=== PATIENT | female | born 1970 | race American Indian/Alaskan Native ===

== ENCOUNTER 2017-04-30 18:23 | Observation (INO) | payer MEDICAID ==
[2017-04-30 18:31] VITALS: BMI 20.2
[2017-04-30] MEDS ORDERED: Sodium Chloride 0.9% 1,000 ML IV STA (19:03)
[2017-04-30] MEDS ORDERED: ceFAZolin 1 gm in NS 1 GM/100 ML BAG IVPB STA (19:07)
[2017-04-30] MEDS ORDERED: Iohexol 240 (50 ml) ONE (19:10)
--- NOTE | 2017-04-30 19:21 | ED PDOC ---
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 Patient reports 2-3 episodes of vomiting daily. Patient also notes appetite changes and weight loss, about 5 pounds a week. Patient was told she was septic and prescribed antibiotics, notes she got yeast infection from medication. Patient went [place] [facility] [place] discharged home a week ago. Denies any diarrhea, vaginal bleeding, dysuria or any other complaints at this time. Reports marijuana use but denies any alcohol use. Medications: Keflex (4 times a day), Zantac, oxycodone PMD: Dr. Jacquelin Bocanegra Symptom Onset: Sudden Symptom Course: Unchanged Activities at Onset: Rest Context: Home Past Medical History - Provider Review Nursing Documentation Reviewed: Yes - Infectious Disease Hx of Infectious Diseases: None - Musculoskeletal/Rheumatological Other/Comment: Knee surgery - "pseudogout" - Genitourinary/Gynecological Other/Comment: endometriosis - Psychiatric Hx Depression: Yes Hx Substance Use: Yes - Surgical History Hx Splenectomy: Yes Other/Comment: R knee surgery - Anesthesia Hx Anesthesia: Yes Hx Anesthesia Reactions: No Hx Malignant Hyperthermia: No Family/Social History - Physician Review Nursing Documentation Reviewed: Yes Family/Social History: Other (non-contributory) Smoking Status: Never Smoked Hx Alcohol Use: No Hx Substance Use: Yes Substance used: marijuana Allergies/Home Meds Allergies/Adverse Reactions: Allergies No Known Allergies Allergy (Verified 04/30/17 22:40) Review of Systems - Physician Review All systems were reviewed & negative as marked: Yes - Review of Systems Gastrointestinal: Abdominal Pain, Vomiting, Appetite Changes. absent: Diarrhea Genitourinary Female: absent: Dysuria, Vaginal Bleeding Physical Exam Vital Signs Reviewed: Yes Vital Signs Temp Pulse Resp BP Pulse Ox 04/30/17 20:25 65 18 135/82 98 04/30/17 18:36 98.5 F 68 18 138/86 99 Appearance: Positive for: Well-Appearing, Non-Toxic, Comfortable Pain Distress: None Mental Status: Positive for: Alert and Oriented X 3 - Systems Exam Head: Present: Atraumatic, Normocephalic Pupils: Present: PERRL Extroacular Muscles: Present: EOMI Conjunctiva: Present: Normal Mouth: Present: Moist Mucous Membranes Neck: Present: Normal Range of Motion Respiratory/Chest: Present: Clear to Auscultation, Good Air Exchange. No: Respiratory Distress, Accessory Muscle Use Cardiovascular: Present: Regular Rate and Rhythm, Normal S1, S2. No: Murmurs Abdomen: Present: Tenderness (diffuse, non focal), Normal Bowel Sounds. No: Distention, Peritoneal Signs Back: Present: Normal Inspection Upper Extremity: Present: Normal Inspection. No: Cyanosis, Edema Lower Extremity: Present: Normal Inspection. No: Edema Neurological: Present: GCS=15, CN II-XII Intact, Speech Normal Skin: Present: Warm, Dry, Normal Color. No: Rashes Psychiatric: Present: Alert, Oriented x 3, Normal Insight, Normal Concentration Medical Decision Making ED Course and Treatment: 04/30/17 19:13 EKG: Ordered, reviewed, and independently interpreted the EKG. Rate : 71 BPM Rhythm : NSR Interpretation : Right bundle branch block, no STEMI - Lab Interpretations Lab Results: 04/30/17 19:15 04/30/17 19:15 Lab Results 04/30/17 19:15: Urine Opiates Screen Negative, Urine Methadone Screen Negative, Ur Barbiturates Screen Negative, Ur Phencyclidine Scrn Negative, Ur Amphetamines Screen Negative, U Benzodiazepines Scrn Negative, U Oth Cocaine Metabols Negative, U Cannabinoids Screen Positive H 04/30/17 19:15: pO2 31, VBG pH 7.30 L, VBG pCO2 62.0 H, VBG HCO3 30.5 H, VBG Total CO2 32.4 H, VBG O2 Sat (Calc) 63.9, VBG Base Excess 2.3 H, VBG Potassium 5.3 H, Sodium 141.0, Chloride 106.0, Glucose 115 H, Lactate 1.5, FiO2 21.0, Venous Blood Potassium 5.3 H 04/30/17 19:15: Urine Color Yellow, Urine Appearance Clear, Urine pH 6.0, Ur Specific [place] >= 1.030, Urine Protein 30 H, Urine Glucose (UA) Negative, Urine Ketones Negative, Urine Blood Small H, Urine Nitrate Negative, Urine Bilirubin Negative, Urine Urobilinogen 0.2, Ur Leukocyte Esterase Negative, Urine RBC 2 - 5, Urine WBC 1 - 3, Ur Epithelial Cells 10 - 12, Urine Bacteria Few 04/30/17 19:15: TSH 3rd Generation 1.54 04/30/17 19:15: Sodium 146, Chloride 106, Potassium 4.2, Carbon Dioxide 27, Anion Gap 17, BUN 14, Creatinine 0.7, Est GFR ( Amer) > 60, Est GFR (Non- Af Amer) > 60, Random Glucose 109, Calcium 9.9, Total Bilirubin 0.5, AST 35, ALT 51, Alkaline Phosphatase 68, Troponin I 0.03, Total Protein 7.8, Albumin 4.8 , Globulin 3.0, Albumin/Globulin Ratio 1.6, Lipase 88 04/30/17 19:15: WBC 12.9 H, RBC 4.06, Hgb 14.0, Hct 39.3, MCV 96.8, MCH 34.5, MCHC 35.6, RDW 15.4 H, Plt Count 370, MPV 9.9, Gran % 74.4 H, Lymph % (Auto) 17.9 L, [place] % (Auto) 7.3 H, Eos % (Auto) 0.3 L, Baso % (Auto) 0.1, Gran # 9.57 H, Lymph # 2.3, [place] # 0.9 H, Eos # 0.0, Baso # 0.01 I have reviewed the lab results: Yes - RAD Interpretation Radiology Orders: 04/30/17 19:02 CHEST PORTABLE [RAD] Stat 04/30/17 19:03 ABD PELVIS PO & IV CONTRAST [CT] Stat - EKG Interpretation Interpreted by ED Physician: Yes Type: 12 lead EKG - Medication Orders Current Medication Orders: Discontinued Medications Acetaminophen (Tylenol 325mg Tab) 650 mg PO Q6H PRN PRN Reason: Pain, moderate (4-7) Sodium Chloride (Sodium Chloride 0.9%) 1,000 mls @ 999 mls/hr IV .Q1H1M STA Stop: 04/30/17 20:03 Last Admin: 04/30/17 19:24 Dose: 999 mls/hr Cefazolin Sodium (Ancef 1gm In Ns) 1 gm in 100 mls @ 100 mls/hr IVPB STAT STA Stop: 04/30/17 20:06 Last Admin: 04/30/17 19:25 Dose: 100 mls/hr Cefazolin Sodium 500 mg/ (Sodium Chloride) 50 mls @ 100 mls/hr IVPB Q8 CAMI PRN Reason: Protocol Last Admin: 05/01/17 05:33 Dose: 100 mls/hr Sodium Chloride (Sodium Chloride 0.9%) 1,000 mls @ 100 mls/hr IV .Q10H [facility] Last Admin: 05/01/17 09:49 Dose: 100 mls/hr Iohexol (Omnipaque 240 (50 Ml)) Confirm Administered Dose 50 ml .ROUTE .STK-MED ONE Stop: 04/30/17 19:11 Last Admin: 04/30/17 19:10 Dose: 50 ml Comments: Given By aircraft avionics technician Iohexol (Omnipaque 350 100 Ml) Confirm Administered Dose 350 mg .ROUTE .STK-MED ONE Stop: 04/30/17 21:25 Ketorolac Tromethamine (Toradol) 10 mg IVP STAT STA Stop: 04/30/17 19:04 Last Admin: 04/30/17 19:25 Dose: 10 mg Re-Assess: [facility] Pain Assessment Document 04/30/17 20:25 OCS (Rec: 04/30/17 21:54 OCS [id number]) Pain Reassessment Is this a pain reassessment? Yes Sleep Is patient sleeping during reassessment? No Presence of Pain Presence of Pain No Ketorolac Tromethamine (Toradol) 15 mg IVP STAT STA Stop: 05/01/17 10:07 Last Admin: 05/01/17 10:27 Dose: 15 mg Lorazepam (Ativan) 1 mg IVP Q4H PRN; Protocol PRN Reason: Anxiety Ondansetron HCl (Zofran Inj) 4 mg IVP ONCE ONE Stop: 04/30/17 19:04 Last Admin: 04/30/17 19:25 Dose: 4 mg Ondansetron HCl (Zofran Inj) 4 mg IVP Q4H PRN PRN Reason: Nausea/Vomiting Oxycodone/Acetaminophen (Percocet 5/325 Mg Tab) 1 tab PO ONCE ONE Stop: 05/01/17 01:29 Last Admin: 05/01/17 01:44 Dose: 1 tab Re-Assess: BALJINDER Pain Assessment Document 05/01/17 02:44 SD (Rec: 05/01/17 05:33 SD [id number]) Pain Reassessment Is this a pain reassessment? Yes Sleep Is patient sleeping during reassessment? No Presence of Pain Presence of Pain No Pain Scale Used Pain Scale Used Numeric Pantoprazole Sodium (Protonix Inj) 40 mg IVP DAILY CAMI Last Admin: 05/01/17 09:49 Dose: 40 mg Pantoprazole Sodium (Protonix Ec Tab) 40 mg PO 0600 [facility]I Pneumococcal Polyvalent Vaccine (Pneumovax 23 Vaccine) 0.5 ml IM .ONCE ONE Stop: 04/30/17 23:22 Polyethylene Glycol (Miralax) 17 gm PO DAILY CAMI - Scribe Statement The provider has reviewed the documentation as recorded by the Aretha Patel Provider Scribe Attestation: All medical record entries made by the Scribe were at my direction and personally dictated by me. I have reviewed the chart and agree that the record accurately reflects my personal performance of the history, physical exam, medical decision making, and the department course for this patient. I have also personally directed, reviewed, and agree with the discharge instructions and disposition. Disposition/Present on Arrival - Present on Arrival Any Indicators Present on Arrival: No History of DVT/PE: No History of Uncontrolled Diabetes: No Urinary Catheter: No History of Decub. Ulcer: No History Surgical Site Infection Following: None - Disposition Have Diagnosis and Disposition been Completed?: Yes Diagnosis: Intractable vomiting with nausea Disposition: HOSPITALIZED Disposition Time: 21:41 Condition: STABLE
[2017-04-30 19:24] LABS: VENOUS BLOOD GAS BASE EXCESS 2.3 mmol/L (0.0-2.0)
[2017-04-30 19:30] LABS: BASO # 0.01 K/mm3 (0.0-2.0); BASO % 0.1 % (0.0-3.0); EOS % 0.3 % (1.5-5.0); GRAN # 9.57 (1.4-6.5); GRAN % 74.4 % (50.0-68.0); HEMATOCRIT 39.3 % (36.0-48.0); LYMPH # 2.3 (1.2-3.4); LYMPH % 17.9 % (22.0-35.0); MEAN CELL VOLUME 96.8 fl (80.0-105.0); MEAN CORPUSCULAR HEMOGLOBIN 34.5 pg (25.0-35.0); MEAN CORPUSCULAR HGB CONC 35.6 g/dl (31.0-37.0); MEAN PLATELET VOLUME 9.9 fl (7.0-11.0); MONO # 0.9 (0.1-0.6); MONO % 7.3 % (1.0-6.0); RED CELL DISTRIBUTION WIDTH 15.4 % (11.5-14.5); WHITE BLOOD COUNT 12.9 10^3/ul (4.5-11.0)
[2017-04-30 19:39] LABS: ALB/GLOB RATIO 1.6 (1.1-1.8); ALKALINE PHOSPHATASE 68 U/L (38-133); ALT/SGPT 51 U/L (7-56); AST/SGOT 35 U/L (15-39); BILIRUBIN,TOTAL 0.5 mg/dL (0.2-1.3); BLOOD UREA NITROGEN 14 mg/dL (7-21); CALCIUM 9.9 mg/dL (8.4-10.5); CARBON DIOXIDE 27 mmol/L (21-33); CHLORIDE 106 mmol/L (98-107); GFR AFRICAN-AMERICAN > 60; GLUCOSE,RANDOM 109 mg/dL (70-110); LIPASE 88 U/L (23-300); POTASSIUM 4.2 mmol/L (3.6-5.0); SODIUM 146 mmol/L (132-148); TOTAL PROTEIN 7.8 g/dL (5.8-8.3)
[2017-04-30 19:51] LABS: TROPONIN I 0.03 ng/mL; URINE BILIRUBIN NEGATIVE (NEGATIVE); URINE BLOOD SMALL (NEGATIVE); URINE GLUCOSE (UA) NEGATIVE (NEGATIVE); URINE KETONE NEGATIVE (NEGATIVE); URINE LEUKOCYTE ESTERASE NEGATIVE Leu/uL (NEGATIVE); URINE PROTEIN 30 mg/dL (<30 mg/dL); URINE UROBILINOGEN 0.2 E.U./dL (<1 E.U./dL)
[2017-04-30 19:57] LABS: URINE APPEARANCE CLEAR (CLEAR); URINE COLOR YELLOW (YELLOW)
[2017-04-30 20:08] LABS: URINE BACTERIA FEW (NEG)
[2017-04-30] MEDS ORDERED: Iohexol 350 MG/100 ML VIAL ONE (21:24)
--- NOTE | 2017-04-30 22:50 | CP.PCM.HP ---
<Maryanne Lay - Last Filed: 04/30/17 23:00> History of Present Illness - History of Present Illness History of Present Illness: 46 F with PMHx of endometriosis with endometrial ablation, splenectomy s/p trauma, left knee surgery s/p septic joint, depression and arthritis presented to the [facility] [place] [facility] ED with complaint sof intractable nausea and vomiting. Pt states that her symptoms are not new, however she has recently noticed herself losing weight rapidly over the past 4 weeks (15lbs). Pt states that she has been suffering from diffuse abdominal pain for years, currently rated at a 7/10. She states that she cannot eat in the morning on account of the pain and only when the pain subsides around the late afternoon is she able to tolerate a liquid diet. Pt states that she vomits almost on a daily basis, specifically 1-2 hours after eating. Pt recently had left knee surgery (04/13/2017) for a septic joint. Pt states that she was doing well in the hospital however she began to decline once she was discharged. Pt denied fever, chills, sob, chest pains, d/c, vaginal discharge, bleeding or urinary symptoms. Pt states she has regular normally formed stools daily. PMHx: As above PSHx: endometial ablation, splenectomy, left knee surgery FamHx: Noncontributory SHx: Denied tobacco/etoh, admitted to marijuana last used "couple weeks" ago Meds: Keflex (4 times a day), Zantac, oxycodone Allergies: NKDA PMD: Dr. Jacquelin Bocanegra Present on Admission - Present on Admission Any Indicators Present on Admission: No Review of Systems - Review of Systems Review of Systems: as per HPI otherwise negative Past Patient History - Infectious Disease Hx of Infectious Diseases: None - Past Social History Smoking Status: Never Smoked - MUSCULOSKELETAL/RHEUMATOLOGICAL Other/Comment: Knee surgery - "pseudogout" - GENITOURINARY/GYNECOLOGICAL Other/Comment: endometriosis - PSYCHIATRIC Hx Depression: Yes Hx Substance Use: Yes - SURGICAL HISTORY Hx Splenectomy: Yes Other/Comment: R knee surgery - ANESTHESIA Hx Anesthesia: Yes Hx Anesthesia Reactions: No Hx Malignant Hyperthermia: No Meds Home Medications: Home Medication List Medication Instructions Recorded Confirmed Type Cephalexin [Keflex] 1 cap PO QID #0 05/01/17 04/30/17 Rx Allergies/Adverse Reactions: Allergies Allergy/AdvReac Type Severity Reaction Status Date / Time No Known Allergies Allergy Verified 04/30/17 22:40 Physical Exam - Constitutional Appears: No Acute Distress - Head Exam Head Exam: ATRAUMATIC, NORMAL INSPECTION, NORMOCEPHALIC - Eye Exam Eye Exam: EOMI, Normal appearance, PERRL Pupil Exam: NORMAL ACCOMODATION, PERRL - ENT Exam ENT Exam: Mucous Membranes Dry - Neck Exam Neck exam: Positive for: Normal Inspection - Respiratory Exam Respiratory Exam: Clear to Auscultation Bilateral, NORMAL BREATHING PATTERN - Cardiovascular Exam Cardiovascular Exam: REGULAR RHYTHM, +S1, +S2 - GI/Abdominal Exam GI & Abdominal Exam: Diminished Bowel Sounds, Soft, Tenderness (diffuse). absent: Guarding - Neurological Exam Neurological exam: Alert, CN II-XII Intact, Normal Gait, Oriented x3, Reflexes Normal - Psychiatric Exam Psychiatric exam: Normal Affect, Normal Mood - Skin Skin Exam: Dry, Intact, Normal Color, Warm Results - Vital Signs Recent Vital Signs: Last Vital Signs Temp 98.5 F 04/30/17 18:36 Pulse 65 04/30/17 20:25 Resp 18 04/30/17 20:25 BP 135/82 04/30/17 20:25 Pulse Ox 98 04/30/17 20:25 - Labs Result Diagrams: 04/30/17 19:15 04/30/17 19:15 Labs: Laboratory Results - last 24 hr 04/30/17 04/30/17 04/30/17 19:15 19:15 19:15 WBC 12.9 H RBC 4.06 Hgb 14.0 Hct 39.3 MCV 96.8 MCH 34.5 MCHC 35.6 RDW 15.4 H Plt Count 370 MPV 9.9 Gran % 74.4 H Lymph % (Auto) 17.9 L [place] % (Auto) 7.3 H Eos % (Auto) 0.3 L Baso % (Auto) 0.1 Gran # 9.57 H Lymph # 2.3 [place] # 0.9 H Eos # 0.0 Baso # 0.01 pO2 VBG pH VBG pCO2 VBG HCO3 VBG Total CO2 VBG O2 Sat (Calc) VBG Base Excess VBG Potassium Sodium 146 Chloride 106 Glucose Lactate FiO2 Potassium 4.2 Carbon Dioxide 27 Anion Gap 17 BUN 14 Creatinine 0.7 Est GFR ( Amer) > 60 Est GFR (Non-Af Amer) > 60 Random Glucose 109 Calcium 9.9 Total Bilirubin 0.5 AST 35 ALT 51 Alkaline Phosphatase 68 Troponin I 0.03 Total Protein 7.8 Albumin 4.8 Globulin 3.0 Albumin/Globulin Ratio 1.6 Lipase 88 TSH 3rd Generation 1.54 Venous Blood Potassium Urine Color Urine Appearance Urine pH Ur Specific [place] Urine Protein Urine Glucose (UA) Urine Ketones Urine Blood Urine Nitrate Urine Bilirubin Urine Urobilinogen Ur Leukocyte Esterase Urine RBC Urine WBC Ur Epithelial Cells Urine Bacteria Urine Opiates Screen Urine Methadone Screen Ur Barbiturates Screen Ur Phencyclidine Scrn Ur Amphetamines Screen U Benzodiazepines Scrn U Oth Cocaine Metabols U Cannabinoids Screen 04/30/17 04/30/17 04/30/17 19:15 19:15 19:15 WBC RBC Hgb Hct MCV MCH MCHC RDW Plt Count MPV Gran % Lymph % (Auto) [place] % (Auto) Eos % (Auto) Baso % (Auto) Gran # Lymph # [place] # Eos # Baso # pO2 31 VBG pH 7.30 L VBG pCO2 62.0 H VBG HCO3 30.5 H VBG Total CO2 32.4 H VBG O2 Sat (Calc) 63.9 VBG Base Excess 2.3 H VBG Potassium 5.3 H Sodium 141.0 Chloride 106.0 Glucose 115 H Lactate 1.5 FiO2 21.0 Potassium Carbon Dioxide Anion Gap BUN Creatinine Est GFR ( Amer) Est GFR (Non-Af Amer) Random Glucose Calcium Total Bilirubin AST ALT Alkaline Phosphatase Troponin I Total Protein Albumin Globulin Albumin/Globulin Ratio Lipase TSH 3rd Generation Venous Blood Potassium 5.3 H Urine Color Yellow Urine Appearance Clear Urine pH 6.0 Ur Specific [place] >= 1.030 Urine Protein 30 H Urine Glucose (UA) Negative Urine Ketones Negative Urine Blood Small H Urine Nitrate Negative Urine Bilirubin Negative Urine Urobilinogen 0.2 Ur Leukocyte Esterase Negative Urine RBC 2 - 5 Urine WBC 1 - 3 Ur Epithelial Cells 10 - 12 Urine Bacteria Few Urine Opiates Screen Negative Urine Methadone Screen Negative Ur Barbiturates Screen Negative Ur Phencyclidine Scrn Negative Ur Amphetamines Screen Negative U Benzodiazepines Scrn Negative U Oth Cocaine Metabols Negative U Cannabinoids Screen Positive H Assessment & Plan - Assessment and Plan (Free Text) Assessment: 46 F with PMHx of endometriosis, arthritis, and depression admitted with complaints of intractable nausea & vomitting Intractable nausea and vomitting - CT Abdomen: gastric wall thickening, small bowel dilitation likely ileus - NPO - Zofran - IVF, NS @100 - Protonix - GI consulted, Dr. Ventura, appreciate recs Left Knee replacement - 04/13/17 - abx, cefazolin - continue to monitor - Ortho, ?Dr. Johnson @ [facility] [place] Marijuana abuse - Utox positive - counselled & educated patient on cessation Leukocytosis - Recent surgery for septic knee - Fu UA, Bcx, Ucx - CXR negative for any acute pathology - VSS GI DVT ppx reviewed Seen reviewed and discussed with attending Maryanne Lay, PGY2 <Marck Goel N - Last Filed: 05/02/17 03:06> Results - Vital Signs Recent Vital Signs: Last Vital Signs Temp 99.0 F 05/01/17 06:00 Pulse 64 05/01/17 06:00 Resp 20 05/01/17 06:00 BP 121/74 05/01/17 06:00 Pulse Ox 100 05/01/17 06:00 - Labs Result Diagrams: 05/01/17 06:30 05/01/17 06:30 Labs: Laboratory Results - last 24 hr 05/01/17 05/01/17 06:30 06:30 WBC 9.3 D RBC 3.39 L Hgb 11.4 L D Hct 32.9 L MCV 97.1 MCH 33.6 MCHC 34.7 RDW 15.4 H Plt Count 284 MPV 9.0 Gran % 54.9 Lymph % (Auto) 34.6 [place] % (Auto) 8.9 H Eos % (Auto) 1.4 L Baso % (Auto) 0.2 Gran # 5.12 Lymph # 3.2 [place] # 0.8 H Eos # 0.1 Baso # 0.02 Sodium 141 Potassium 3.5 L Chloride 109 H Carbon Dioxide 25 Anion Gap 11 BUN 13 Creatinine 0.7 Est GFR ( Amer) > 60 Est GFR (Non-Af Amer) > 60 Random Glucose 101 Calcium 8.6 Total Bilirubin 0.3 AST 38 ALT 50 Alkaline Phosphatase 57 Total Protein 6.2 Albumin 3.5 Globulin 2.7 Albumin/Globulin Ratio 1.3
--- NOTE | 2017-04-30 22:55 | CT ---
EXAM: CT Abdomen and Pelvis With Intravenous Contrast CLINICAL HISTORY: 46 years old, female; Pain; Abdominal pain; Generalized; Prior surgery; Surgery date: 6+ months; Surgery type: Splenectomy; Additional info: Abd pain and vomiting TECHNIQUE: Axial computed tomography images of the abdomen and pelvis with intravenous contrast. All CT scans at this facility use one or more dose reduction techniques, viz.: automated exposure control; ma/kV adjustment per patient size (including targeted exams where dose is matched to indication; i.e. head); or iterative reconstruction technique. Coronal and sagittal reformatted images were created and reviewed. CONTRAST: 100 mL of OMNIPAQUE 350 administered intravenously. COMPARISON: No relevant prior studies available. FINDINGS: Limitations: Paucity of intra-abdominal fat. Lower thorax: Mild atelectasis/scarring/fibrosis. Small pericardial effusion. ABDOMEN: Liver: Unremarkable. No mass. Gallbladder and bile ducts: No calcified stones. No ductal dilation. Pancreas: No ductal dilation. No mass. Spleen: Splenectomy. Splenic remnant or splenule. Adrenals: No mass. Kidneys and ureters: No mass. No hydronephrosis. Stomach and bowel: Contrast within small and large bowel. Focal mural thickening vs underdistention gastric antrum. Few mild to moderately dilated loops of proximal small bowel. Appendix: Normal caliber. No inflammation. PELVIS: Bladder: Unremarkable. Reproductive: Unremarkable as visualized. ABDOMEN and PELVIS: Intraperitoneal space: No significant fluid collection. No free air. Bones/joints: No acute fracture. Soft tissues: Unremarkable. Vasculature: Extensive atherosclerotic disease of aorta. Moderate atherosclerotic disease of iliac arteries. Areas of moderate to severe stenosis within aorta and RIGHT common iliac artery. No occlusion. Lymph nodes: No pathologically enlarged lymph nodes. IMPRESSION: 1. Focal gastric wall thickening vs underdistention. Clinical correlation is needed. 2. Proximal small bowel dilatation, likely ileus. Partial obstruction not entirely excluded. 3. Moderate to severe atherosclerotic disease of aorta and iliac arteries. 4. Incidental/non-acute findings are described above.
[2017-04-30] MEDS: Sodium Chloride 0.9% 1,000 ML IV SCH (23:00)
[2017-04-30] MEDS ORDERED: Pneumococcal 23-Valent Vaccine IM ONE (23:21)
[2017-05-01] MEDS ORDERED: Oxycodone/Acetaminophen 5/325 mg Tab PO ONE (01:28)
[2017-05-01 07:33] LABS: ALB/GLOB RATIO 1.3 (1.1-1.8); ALKALINE PHOSPHATASE 57 U/L (38-133); ALT/SGPT 50 U/L (7-56); AST/SGOT 38 U/L (15-39); BILIRUBIN,TOTAL 0.3 mg/dL (0.2-1.3); BLOOD UREA NITROGEN 13 mg/dL (7-21); CALCIUM 8.6 mg/dL (8.4-10.5); CARBON DIOXIDE 25 mmol/L (21-33); GFR AFRICAN-AMERICAN > 60; GLUCOSE,RANDOM 101 mg/dL (70-110); POTASSIUM 3.5 mmol/L (3.6-5.0); SODIUM 141 mmol/L (132-148); TOTAL PROTEIN 6.2 g/dL (5.8-8.3)
[2017-05-01 07:34] LABS: CHLORIDE 109 mmol/L (98-107)
[2017-05-01 07:42] LABS: BASO # 0.02 K/mm3 (0.0-2.0); BASO % 0.2 % (0.0-3.0); EOS # 0.1 (0.0-0.7); EOS % 1.4 % (1.5-5.0); GRAN # 5.12 (1.4-6.5); GRAN % 54.9 % (50.0-68.0); HEMATOCRIT 32.9 % (36.0-48.0); LYMPH # 3.2 (1.2-3.4); LYMPH % 34.6 % (22.0-35.0); MEAN CELL VOLUME 97.1 fl (80.0-105.0); MEAN CORPUSCULAR HEMOGLOBIN 33.6 pg (25.0-35.0); MEAN CORPUSCULAR HGB CONC 34.7 g/dl (31.0-37.0); MONO # 0.8 (0.1-0.6); MONO % 8.9 % (1.0-6.0); RED CELL DISTRIBUTION WIDTH 15.4 % (11.5-14.5); WHITE BLOOD COUNT 9.3 10^3/ul (4.5-11.0)
[2017-05-01] MEDS: Sodium Chloride 0.9% 1,000 ML IV SCH (09:49)
[2017-05-01 10:03] VITALS: BP 121/74; PULSE 64; RESP 20; TEMP 99; O2SAT 100
--- NOTE | 2017-05-01 10:21 | RAD ---
HISTORY: wt loss COMPARISON: No prior. FINDINGS: LUNGS: No active pulmonary disease. PLEURA: No significant pleural effusion identified, no pneumothorax apparent. CARDIOVASCULAR: Normal. OSSEOUS STRUCTURES: No significant abnormalities. VISUALIZED UPPER ABDOMEN: Normal. OTHER FINDINGS: None. IMPRESSION: No active disease.
--- NOTE | 2017-05-01 12:33 | CP.PCM.CON ---
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 Patient notes chronic cycles of daily morning intractable bilious vomiting for over twenty years. She noted a fifty percent improvement in her symptoms since having the endometrial ablation. She notes worsening in her symptoms with her menstrual cycle and after recent joint washout for left knee septic arthritis and discharge on Keflex 04/13/17. She notes multiple episodes of bilious vomiting in last two days and associated fifteen pound weight loss in the last two months. No further vomiting episodes since admission. Associated intermittent heartburn relieved by Zantac. Denies indigestion, acid reflux, abdominal pain, diarrhea, constipation, hematemesis, melena, or hematochezia. Prior EGD [id number] endorsed to be normal. No prior colonoscopy. Family- cousin- stomach cancer, sister- H pylori Gastritis; denies colon cancer Social- admits to marijuana use for fifteen years; denies tobacco or alcohol use Surgery- splenectomy, left knee washout, endometrial ablation 2014 Review of Systems - Review of Systems Review of Systems: 12-point review of systems negative except for as above Past Patient History - Infectious Disease Hx of Infectious Diseases: None - Past Social History Smoking Status: Never Smoked - CARDIAC Hx Cardiac Disorders: No - PULMONARY Hx Respiratory Disorders: Yes Other/Comment: SMOKES MARIJUANA - NEUROLOGICAL Hx Neurological Disorder: No - HEENT Hx HEENT Problems: No - RENAL Hx Chronic Kidney Disease: No - ENDOCRINE/METABOLIC Hx Endocrine Disorders: No - HEMATOLOGICAL/ONCOLOGICAL Hx Blood Disorders: No - INTEGUMENTARY Hx Dermatological Problems: Yes (TATTOOS,LEFT KNEE SCARRING FROM SX) - MUSCULOSKELETAL/RHEUMATOLOGICAL Other/Comment: Knee surgery - "pseudogout" - GASTROINTESTINAL Hx Gastrointestinal Disorders: Yes Other/Comment: 5 LB WEIGHT LOSS EVERY WEEK.N/.V ABDOMINAL PAIN X 20 YRS.IN AND OUT OF HOSPITAL.APPEITITE CHANGES. - GENITOURINARY/GYNECOLOGICAL Other/Comment: endometriosis - PSYCHIATRIC Hx Depression: Yes Hx Substance Use: Yes - SURGICAL HISTORY Hx Splenectomy: Yes Other/Comment: R knee surgery - ANESTHESIA Hx Anesthesia: Yes Hx Anesthesia Reactions: No Hx Malignant Hyperthermia: No Meds Home Medications: Home Medication List Medication Instructions Recorded Confirmed Type Cephalexin [Keflex] 1 cap PO QID #0 05/01/17 04/30/17 Rx Allergies/Adverse Reactions: Allergies Allergy/AdvReac Type Severity Reaction Status Date / Time No Known Allergies Allergy Verified 04/30/17 22:40 - Medications Medications: Current Medications Acetaminophen (Tylenol 325mg Tab) 650 mg PO Q6H PRN PRN Reason: Pain, moderate (4-7) Cefazolin Sodium 500 mg/ (Sodium Chloride) 50 mls @ 100 mls/hr IVPB Q8 CAMI PRN Reason: Protocol Last Admin: 05/01/17 05:33 Dose: 100 mls/hr Sodium Chloride (Sodium Chloride 0.9%) 1,000 mls @ 100 mls/hr IV .Q10H [facility] Last Admin: 05/01/17 09:49 Dose: 100 mls/hr Lorazepam (Ativan) 1 mg IVP Q4H PRN; Protocol PRN Reason: Anxiety Ondansetron HCl (Zofran Inj) 4 mg IVP Q4H PRN PRN Reason: Nausea/Vomiting Pantoprazole Sodium (Protonix Inj) 40 mg IVP DAILY [facility] Last Admin: 05/01/17 09:49 Dose: 40 mg Physical Exam - Constitutional Appears: Non-toxic, No Acute Distress - Head Exam Head Exam: ATRAUMATIC, NORMOCEPHALIC - Eye Exam Eye Exam: EOMI, PERRL Pupil Exam: absent: Miosis, Mydriatic, PERRL - ENT Exam ENT Exam: Mucous Membranes Moist, Normal Oropharynx - Neck Exam Neck exam: Positive for: Full Rom, Normal Inspection - Respiratory Exam Respiratory Exam: Clear to Auscultation Bilateral. absent: Rales, Rhonchi, Wheezes - Cardiovascular Exam Cardiovascular Exam: RRR, +S1, +S2. absent: Gallop, Rubs - GI/Abdominal Exam GI & Abdominal Exam: Normal Bowel Sounds, Soft. absent: Distended, Firm, Guarding, Organomegaly, Rebound, Rigid, Tenderness - Extremities Exam Extremities exam: Positive for: normal inspection. Negative for: pedal edema - Neurological Exam Neurological exam: Alert - Psychiatric Exam Psychiatric exam: Normal Affect, Normal Mood - Skin Skin Exam: Dry, Intact, Normal Color, Warm Results - Vital Signs Recent Vital Signs: Last Vital Signs Temp 99.0 F 05/01/17 06:00 Pulse 64 05/01/17 06:00 Resp 20 05/01/17 06:00 BP 121/74 05/01/17 06:00 Pulse Ox 100 05/01/17 06:00 - Labs Result Diagrams: 05/01/17 06:30 05/01/17 06:30 Labs: Laboratory Results - last 24 hr 05/01/17 05/01/17 06:30 06:30 WBC 9.3 D RBC 3.39 L Hgb 11.4 L D Hct 32.9 L MCV 97.1 MCH 33.6 MCHC 34.7 RDW 15.4 H Plt Count 284 MPV 9.0 Gran % 54.9 Lymph % (Auto) 34.6 Carroll % (Auto) 8.9 H Eos % (Auto) 1.4 L Baso % (Auto) 0.2 Gran # 5.12 Lymph # 3.2 Carroll # 0.8 H Eos # 0.1 Baso # 0.02 Sodium 141 Potassium 3.5 L Chloride 109 H Carbon Dioxide 25 Anion Gap 11 BUN 13 Creatinine 0.7 Est GFR ( Amer) > 60 Est GFR (Non-Af Amer) > 60 Random Glucose 101 Calcium 8.6 Total Bilirubin 0.3 AST 38 ALT 50 Alkaline Phosphatase 57 Total Protein 6.2 Albumin 3.5 Globulin 2.7 Albumin/Globulin Ratio 1.3 Assessment & Plan - Assessment and Plan (Free Text) Assessment: 46 year old female with history Depression, endometriosis s/p ablation, 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 Active treatment of intractable vomiting. Prior EGD [id number] endorsed to be normal. No prior colonoscopy. Plan: >resolved vomiting >counselled on marijuana cessation as component of cyclic vomiting >advance to regular diet as tolerated >continue PPI ACB >Miralax daily >counselled on outpatient EGD to evaluate for PUD/H pylori >counselled on outpatient colonoscopy to evaluate for endometrial colonic implants and CRC screening starting at 45 years of age >follow up with Dr Diaz in 2 weeks <Shawn Diaz MD - Last Filed: 05/01/17 18:35> Results - Vital Signs Recent Vital Signs: Last Vital Signs Temp 99.0 F 05/01/17 06:00 Pulse 64 05/01/17 06:00 Resp 20 05/01/17 06:00 BP 121/74 05/01/17 06:00 Pulse Ox 100 05/01/17 06:00 - Labs Result Diagrams: 05/01/17 06:30 05/01/17 06:30 Labs: Laboratory Results - last 24 hr 05/01/17 05/01/17 06:30 06:30 WBC 9.3 D RBC 3.39 L Hgb 11.4 L D Hct 32.9 L MCV 97.1 MCH 33.6 MCHC 34.7 RDW 15.4 H Plt Count 284 MPV 9.0 Gran % 54.9 Lymph % (Auto) 34.6 Carroll % (Auto) 8.9 H Eos % (Auto) 1.4 L Baso % (Auto) 0.2 Gran # 5.12 Lymph # 3.2 Carroll # 0.8 H Eos # 0.1 Baso # 0.02 Sodium 141 Potassium 3.5 L Chloride 109 H Carbon Dioxide 25 Anion Gap 11 BUN 13 Creatinine 0.7 Est GFR ( Amer) > 60 Est GFR (Non-Af Amer) > 60 Random Glucose 101 Calcium 8.6 Total Bilirubin 0.3 AST 38 ALT 50 Alkaline Phosphatase 57 Total Protein 6.2 Albumin 3.5 Globulin 2.7 Albumin/Globulin Ratio 1.3 Attending/Attestation - Attestation I have personally seen and examined this patient.: Yes I have fully participated in the care of the patient.: Yes I have reviewed all pertinent clinical information: Yes Notes (Text): 05/01/17 18:34 Patient seen with GI fellow on rounds. 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 Now resolved. Marijuana cessation councelling done. Needs outpatient EGD for vomiting and epigatsric pain and colonoscopy for endometrial implants in colon
[2017-05-01] MEDS ORDERED: POLYETHYLENE GLYCOL 3350 17 GM/Dose PACKET PO SCH (12:45)
--- NOTE | 2017-05-01 13:27 | CARD ---
APPROVED REPORT EKG Measurement Heart [id number] 140P79 [id number] <Conclusion> Normal sinus rhythm with sinus arrhythmia Possible Left atrial enlargement Right bundle branch block Abnormal ECG
--- NOTE | 2017-05-01 22:08 | CP.PCM.DIS ---
<PHILIP SURESH - Last Filed: 05/01/17 22:04> Provider - Provider Date of Admission: 04/30/17 21:39 Attending physician: Deon Goel MD Primary care physician: Jacquelin Bocanegra MD Consults: GI-Lorenzo Time Spent in preparation of Discharge (in minutes): 41 Hospital Course - Lab Results Lab Results: Most Recent Lab Values WBC 9.3 10^3/ul (4.5-11.0) D 05/01/17 06:30 RBC 3.39 10^6/uL (3.5-6.1) L 05/01/17 06:30 Hgb 11.4 g/dL (12.0-16.0) L D 05/01/17 06:30 Hct 32.9 % (36.0-48.0) L 05/01/17 06:30 MCV 97.1 fl (80.0-105.0) 05/01/17 06:30 MCH 33.6 pg (25.0-35.0) 05/01/17 06:30 MCHC 34.7 g/dl (31.0-37.0) 05/01/17 06:30 RDW 15.4 % (11.5-14.5) H 05/01/17 06:30 Plt Count 284 10^3/uL (120.0-450.0) 05/01/17 06:30 MPV 9.0 fl (7.0-11.0) 05/01/17 06:30 Gran % 54.9 % (50.0-68.0) 05/01/17 06:30 Lymph % (Auto) 34.6 % (22.0-35.0) 05/01/17 06:30 Menard % (Auto) 8.9 % (1.0-6.0) H 05/01/17 06:30 Eos % (Auto) 1.4 % (1.5-5.0) L 05/01/17 06:30 Baso % (Auto) 0.2 % (0.0-3.0) 05/01/17 06:30 Gran # 5.12 (1.4-6.5) 05/01/17 06:30 Lymph # 3.2 (1.2-3.4) 05/01/17 06:30 Menard # 0.8 (0.1-0.6) H 05/01/17 06:30 Eos # 0.1 (0.0-0.7) 05/01/17 06:30 Baso # 0.02 K/mm3 (0.0-2.0) 05/01/17 06:30 pO2 31 mm/Hg (30-55) 04/30/17 19:15 VBG pH 7.30 (7.32-7.43) L 04/30/17 19:15 VBG pCO2 62.0 (40-60) H 04/30/17 19:15 VBG HCO3 30.5 mmol/l (21-28) H 04/30/17 19:15 VBG Total CO2 32.4 mmol.L (22-28) H 04/30/17 19:15 VBG O2 Sat (Calc) 63.9 % (40-65) 04/30/17 19:15 VBG Base Excess 2.3 mmol/L (0.0-2.0) H 04/30/17 19:15 VBG Potassium 5.3 mmol/L (3.6-5.2) H 04/30/17 19:15 Sodium 141.0 mmol/L (132-148) 04/30/17 19:15 Chloride 106.0 mmol/L (98-107) 04/30/17 19:15 Glucose 115 mg/dl (65-105) H 04/30/17 19:15 Lactate 1.5 mmol/L (0.7-2.1) 04/30/17 19:15 FiO2 21.0 % 04/30/17 19:15 Sodium 141 mmol/L (132-148) 05/01/17 06:30 Potassium 3.5 mmol/L (3.6-5.0) L 05/01/17 06:30 Chloride 109 mmol/L (98-107) H 05/01/17 06:30 Carbon Dioxide 25 mmol/L (21-33) 05/01/17 06:30 Anion Gap 11 (10-20) 05/01/17 06:30 BUN 13 mg/dL (7-21) 05/01/17 06:30 Creatinine 0.7 mg/dL (0.5-1.4) 05/01/17 06:30 Est GFR ( Amer) > 60 05/01/17 06:30 Est GFR (Non-Af Amer) > 60 05/01/17 06:30 Random Glucose 101 mg/dL (70-110) 05/01/17 06:30 Calcium 8.6 mg/dL (8.4-10.5) 05/01/17 06:30 Total Bilirubin 0.3 mg/dL (0.2-1.3) 05/01/17 06:30 AST 38 U/L (15-39) 05/01/17 06:30 ALT 50 U/L (7-56) 05/01/17 06:30 Alkaline Phosphatase 57 U/L (38-133) 05/01/17 06:30 Troponin I 0.03 ng/mL 04/30/17 19:15 Total Protein 6.2 g/dL (5.8-8.3) 05/01/17 06:30 Albumin 3.5 g/dL (3.0-4.8) 05/01/17 06:30 Globulin 2.7 gm/dL 05/01/17 06:30 Albumin/Globulin Ratio 1.3 (1.1-1.8) 05/01/17 06:30 Lipase 88 U/L (23-300) 04/30/17 19:15 TSH 3rd Generation 1.54 mIU/mL (0.46-4.68) 04/30/17 19:15 Venous Blood Potassium 5.3 mmol/L (3.6-5.2) H 04/30/17 19:15 Urine Color Yellow (YELLOW) 04/30/17 19:15 Urine Appearance Clear (CLEAR) 04/30/17 19:15 Urine pH 6.0 (4.7-8.0) 04/30/17 19:15 Ur Specific [place] >= 1.030 (1.005-1.035) 04/30/17 19:15 Urine Protein 30 mg/dL (<30 mg/dL) H 04/30/17 19:15 Urine Glucose (UA) Negative mg/dL (NEGATIVE) 04/30/17 19:15 Urine Ketones Negative mg/dL (NEGATIVE) 04/30/17 19:15 Urine Blood Small (NEGATIVE) H 04/30/17 19:15 Urine Nitrate Negative (NEGATIVE) 04/30/17 19:15 Urine Bilirubin Negative (NEGATIVE) 04/30/17 19:15 Urine Urobilinogen 0.2 E.U./dL (<1 E.U./dL) 04/30/17 19:15 Ur Leukocyte Esterase Negative Renetta/uL (NEGATIVE) 04/30/17 19:15 Urine RBC 2 - 5 /hpf (0-2) 04/30/17 19:15 Urine WBC 1 - 3 /hpf (0-6) 04/30/17 19:15 Ur Epithelial Cells 10 - 12 /hpf (0-5) 04/30/17 19:15 Urine Bacteria Few (NEG) 04/30/17 19:15 Urine Opiates Screen Negative (NEGATIVE) 04/30/17 19:15 Urine Methadone Screen Negative (NEGATIVE) 04/30/17 19:15 Ur Barbiturates Screen Negative (NEGATIVE) 04/30/17 19:15 Ur Phencyclidine Scrn Negative (NEGATIVE) 04/30/17 19:15 Ur Amphetamines Screen Negative (NEGATIVE) 04/30/17 19:15 U Benzodiazepines Scrn Negative (NEGATIVE) 04/30/17 19:15 U Oth Cocaine Metabols Negative (NEGATIVE) 04/30/17 19:15 U Cannabinoids Screen Positive (NEGATIVE) H 04/30/17 19:15 - Hospital Course Hospital Course: 46 year old female with a past medical history of endometriosis with endometrial ablation, splenectomy s/p trauma, left knee surgery s/p septic joint at [facility] on 04/13, depression and arthritis presented to the [facility] ED with complaints of intractable nausea and vomiting. A CT Abdomen/Pelvis showed gastric wall thickening and small bowel dilitation likely ileus. IV cefazolin was started and GI was consulted. GI was consulted and recommended continuing PPI, Miralax daily, an outpatient EGD to evaluate for PUD/H pylori, an outpatient colonoscopy to evaluate for endometrial colonic implants and CRC screening starting at 45 years of age. Patient was then discharged on 05/01 with strict instructions to follow up with Dr Diaz in 2 weeks. - Date & Time of H&P Date of H&P: 04/30/17 Time of H&P: 22:39 Discharge Exam - Head Exam Head Exam: ATRAUMATIC, NORMOCEPHALIC - Eye Exam Eye Exam: EOMI, Normal appearance, PERRL - ENT Exam ENT Exam: Mucous Membranes Moist, Normal Exam - Neck Exam Neck exam: Full Rom - Respiratory Exam Respiratory Exam: NORMAL BREATHING PATTERN, UNREMARKABLE. absent: Rales, Rhonchi, Wheezes, Respiratory Distress - Cardiovascular Exam Cardiovascular Exam: REGULAR RHYTHM, RRR, +S1, +S2 - GI/Abdominal Exam GI & Abdominal Exam: Normal Bowel Sounds, Unremarkable. absent: Distended, Firm , Guarding, Tenderness - Exam Exam: absent: Bladder Distension - Extremities Exam Extremities exam: normal capillary refill, pedal pulses present - Back Exam Back exam: absent: CVA tenderness (L), CVA tenderness (R) - Neurological Exam Neurological exam: Alert, Normal Gait, Oriented x3 - Psychiatric Exam Psychiatric exam: Normal Affect, Normal Mood - Skin Skin Exam: Dry, Intact, Normal Color, Warm Discharge Plan - Follow Up Plan Condition: STABLE Disposition: HOME/ ROUTINE Instructions: Acute Nausea and Vomiting (DC) Additional Instructions: 1. Please follow up with Dr. Ventura/Dr. Diaz, Gastroenterology, within one week to establish care and to discuss scheduling an outpatient endoscopy and colonoscopy. 2. Please follow up with your primary care doctor, Dr. Bocanegra, within one week to discuss the medical conditions addressed on your admission to [facility]. 3. Please take all medications prescribed for their entire course. 4. If your symptoms should worsen or persist, please seek emergency medical attention. Referrals: Joe SUMMERS,MD Shawn [Medical Doctor] - 2 Week Jacquelin Bocanegra MD [Primary Care Provider] - <Deon Goel - Last Filed: 05/02/17 12:54> Provider - Provider Date of Admission: 04/30/17 21:39 Attending physician: Deon Goel MD Primary care physician: Jacquelin Bocanegra MD Hospital Course - Lab Results Lab Results: Most Recent Lab Values WBC 9.3 10^3/ul (4.5-11.0) D 05/01/17 06:30 RBC 3.39 10^6/uL (3.5-6.1) L 05/01/17 06:30 Hgb 11.4 g/dL (12.0-16.0) L D 05/01/17 06:30 Hct 32.9 % (36.0-48.0) L 05/01/17 06:30 MCV 97.1 fl (80.0-105.0) 05/01/17 06:30 MCH 33.6 pg (25.0-35.0) 05/01/17 06:30 MCHC 34.7 g/dl (31.0-37.0) 05/01/17 06:30 RDW 15.4 % (11.5-14.5) H 05/01/17 06:30 Plt Count 284 10^3/uL (120.0-450.0) 05/01/17 06:30 MPV 9.0 fl (7.0-11.0) 05/01/17 06:30 Gran % 54.9 % (50.0-68.0) 05/01/17 06:30 Lymph % (Auto) 34.6 % (22.0-35.0) 05/01/17 06:30 Menard % (Auto) 8.9 % (1.0-6.0) H 05/01/17 06:30 Eos % (Auto) 1.4 % (1.5-5.0) L 05/01/17 06:30 Baso % (Auto) 0.2 % (0.0-3.0) 05/01/17 06:30 Gran # 5.12 (1.4-6.5) 05/01/17 06:30 Lymph # 3.2 (1.2-3.4) 05/01/17 06:30 Menard # 0.8 (0.1-0.6) H 05/01/17 06:30 Eos # 0.1 (0.0-0.7) 05/01/17 06:30 Baso # 0.02 K/mm3 (0.0-2.0) 05/01/17 06:30 pO2 31 mm/Hg (30-55) 04/30/17 19:15 VBG pH 7.30 (7.32-7.43) L 04/30/17 19:15 VBG pCO2 62.0 (40-60) H 04/30/17 19:15 VBG HCO3 30.5 mmol/l (21-28) H 04/30/17 19:15 VBG Total CO2 32.4 mmol.L (22-28) H 04/30/17 19:15 VBG O2 Sat (Calc) 63.9 % (40-65) 04/30/17 19:15 VBG Base Excess 2.3 mmol/L (0.0-2.0) H 04/30/17 19:15 VBG Potassium 5.3 mmol/L (3.6-5.2) H 04/30/17 19:15 Sodium 141.0 mmol/L (132-148) 04/30/17 19:15 Chloride 106.0 mmol/L (98-107) 04/30/17 19:15 Glucose 115 mg/dl (65-105) H 04/30/17 19:15 Lactate 1.5 mmol/L (0.7-2.1) 04/30/17 19:15 FiO2 21.0 % 04/30/17 19:15 Sodium 141 mmol/L (132-148) 05/01/17 06:30 Potassium 3.5 mmol/L (3.6-5.0) L 05/01/17 06:30 Chloride 109 mmol/L (98-107) H 05/01/17 06:30 Carbon Dioxide 25 mmol/L (21-33) 05/01/17 06:30 Anion Gap 11 (10-20) 05/01/17 06:30 BUN 13 mg/dL (7-21) 05/01/17 06:30 Creatinine 0.7 mg/dL (0.5-1.4) 05/01/17 06:30 Est GFR ( Amer) > 60 05/01/17 06:30 Est GFR (Non-Af Amer) > 60 05/01/17 06:30 Random Glucose 101 mg/dL (70-110) 05/01/17 06:30 Calcium 8.6 mg/dL (8.4-10.5) 05/01/17 06:30 Total Bilirubin 0.3 mg/dL (0.2-1.3) 05/01/17 06:30 AST 38 U/L (15-39) 05/01/17 06:30 ALT 50 U/L (7-56) 05/01/17 06:30 Alkaline Phosphatase 57 U/L (38-133) 05/01/17 06:30 Troponin I 0.03 ng/mL 04/30/17 19:15 Total Protein 6.2 g/dL (5.8-8.3) 05/01/17 06:30 Albumin 3.5 g/dL (3.0-4.8) 05/01/17 06:30 Globulin 2.7 gm/dL 05/01/17 06:30 Albumin/Globulin Ratio 1.3 (1.1-1.8) 05/01/17 06:30 Lipase 88 U/L (23-300) 04/30/17 19:15 TSH 3rd Generation 1.54 mIU/mL (0.46-4.68) 04/30/17 19:15 Venous Blood Potassium 5.3 mmol/L (3.6-5.2) H 04/30/17 19:15 Urine Color Yellow (YELLOW) 04/30/17 19:15 Urine Appearance Clear (CLEAR) 04/30/17 19:15 Urine pH 6.0 (4.7-8.0) 04/30/17 19:15 Ur Specific [place] >= 1.030 (1.005-1.035) 04/30/17 19:15 Urine Protein 30 mg/dL (<30 mg/dL) H 04/30/17 19:15 Urine Glucose (UA) Negative mg/dL (NEGATIVE) 04/30/17 19:15 Urine Ketones Negative mg/dL (NEGATIVE) 04/30/17 19:15 Urine Blood Small (NEGATIVE) H 04/30/17 19:15 Urine Nitrate Negative (NEGATIVE) 04/30/17 19:15 Urine Bilirubin Negative (NEGATIVE) 04/30/17 19:15 Urine Urobilinogen 0.2 E.U./dL (<1 E.U./dL) 04/30/17 19:15 Ur Leukocyte Esterase Negative Renetta/uL (NEGATIVE) 04/30/17 19:15 Urine RBC 2 - 5 /hpf (0-2) 04/30/17 19:15 Urine WBC 1 - 3 /hpf (0-6) 04/30/17 19:15 Ur Epithelial Cells 10 - 12 /hpf (0-5) 04/30/17 19:15 Urine Bacteria Few (NEG) 04/30/17 19:15 Urine Opiates Screen Negative (NEGATIVE) 04/30/17 19:15 Urine Methadone Screen Negative (NEGATIVE) 04/30/17 19:15 Ur Barbiturates Screen Negative (NEGATIVE) 04/30/17 19:15 Ur Phencyclidine Scrn Negative (NEGATIVE) 04/30/17 19:15 Ur Amphetamines Screen Negative (NEGATIVE) 04/30/17 19:15 U Benzodiazepines Scrn Negative (NEGATIVE) 04/30/17 19:15 U Oth Cocaine Metabols Negative (NEGATIVE) 04/30/17 19:15 U Cannabinoids Screen Positive (NEGATIVE) H 04/30/17 19:15 Attending/Attestation - Attestation I have personally seen and examined this patient.: Yes I have fully participated in the care of the patient.: Yes I have reviewed all pertinent clinical information, including history, physical exam and plan: Yes Notes (Text): I have seen and examined patient at bedside. Agree with the above note: Briefly this is 46 year old female with history of endometriosis s/p ablation, recent left knee replacement due to septic joint, depression, marijuana use who was admitted with persistent chronic nausea, vomiting and questionable weight loss with normal BM. CT showed gastric wall thickeing and smal bowel dilatation. GI recommended the patient to follow up with Dr Diaz in 2 weeks and is scheduled for outpatient EGD and colonoscopy. Dr Deon Goel
[2017-05-02] MEDS ORDERED: Pantoprazole 40 mg EC Tab PO SCH (06:00)
== END 2017-05-01 14:27 | disposition home or self-care (01) ==
LOC: ED 18:23 → ERH 21:39 → MERGE 21:39 → ERH 22:09 → 3RSO 22:20
PROVIDERS: ADMIT Hospitalist; ATTEND Hospitalist
DX: R11.2 Nausea with vomiting, unspecified (principal); K56.7 Ileus, unspecified; F32.9 Major depressive disorder, single episode, unspecified; F12.10 Cannabis abuse, uncomplicated; M19.90 Unspecified osteoarthritis, unspecified site; D72.829 Elevated white blood cell count, unspecified; Z96.652 Presence of left artificial knee joint
CPT/HCPCS: 36415; 71010; 74177; 80053; 80324; 80345; 80346; 80349; 80353; 80358; 80361; 81001; 82803; 83690; 83992; 84443; 84484; 85025; 87040; 93005; 96361; 96365; 96375; 96376; 99285; C9113; G0378; J0690; J1885; J2405; J7040; Q9966; Q9967

== ENCOUNTER 2019-01-05 21:37 | Observation (INO) | payer MEDICAID ==
[2019-01-05 21:45] VITALS: BMI 23.9
[2019-01-05] MEDS ORDERED: Sodium Chloride 0.9% 1,000 ML IV STA (21:53)
[2019-01-05 22:17] LABS: HEMOGLOBIN 15.4 g/dL (12.0-16.0); MEAN CELL VOLUME 94.9 fl (80.0-105.0); MEAN CORPUSCULAR HEMOGLOBIN 33.8 pg (25.0-35.0); MEAN CORPUSCULAR HGB CONC 35.6 g/dl (31.0-37.0); MEAN PLATELET VOLUME 9.1 fl (7.0-11.0); RBC 4.55 10^6/uL (3.5-6.1); RED CELL DISTRIBUTION WIDTH 13.5 % (11.5-14.5); WHITE BLOOD COUNT 20.4 10^3/uL (4.5-11.0)
[2019-01-05 22:22] LABS: ALB/GLOB RATIO 1.2 (1.1-1.8); ALBUMIN 5.1 g/dL (3.0-4.8); ALT/SGPT 55 U/L (7-56); AST/SGOT 53 U/L (14-36); BLOOD UREA NITROGEN 15 mg/dL (7-21); CALCIUM 10.6 mg/dL (8.4-10.5); GFR NON-AFRICAN AMERICAN > 60; LIPASE 174 U/L (23-300)
[2019-01-05] MEDS ORDERED: Morphine 4 mg/ml ISec IVP STA (22:22)
[2019-01-05] MEDS ORDERED: Morphine 2 mg/ml ISec IVP STA (22:27)
--- NOTE | 2019-01-05 22:28 | ED PDOC ---
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 Patient reports symptom onset of 1 day. Patient informs of diffuse abdominal discomfort as well. Patient states she believes her symptoms are due to her endometriosis. Patient denies any fever, chills, chest pain, vaginal discharge, urinary symptoms, or any other complaint. PMD: Dr. Jacquelin Bocanegra Time/Duration: 24 hours Symptom Onset: Gradual Symptom Course: Unchanged Quality: Cramping Activities at Onset: Light Context: Home Past Medical History - Provider Review Nursing Documentation Reviewed: Yes - Infectious Disease Hx of Infectious Diseases: None - Reproductive Menopause: Yes - Cardiac Hx Cardiac Disorders: No - Pulmonary Hx Respiratory Disorders: Yes Other/Comment: SMOKES MARIJUANA - Neurological Hx Neurological Disorder: No - HEENT Hx HEENT Disorder: No - Renal Hx Renal Disorder: No - Endocrine/Metabolic Hx Endocrine Disorders: No - Hematological/Oncological Hx Blood Disorders: No - Integumentary Hx Dermatological Disorder: Yes (TATTOOS,LEFT KNEE SCARRING FROM SX) - Musculoskeletal/Rheumatological Hx Musculoskeletal Disorders: Yes Hx Arthritis: Yes Other/Comment: Knee surgery - "pseudogout" - Gastrointestinal Hx Gastrointestinal Disorders: Yes Other/Comment: 5 LB WEIGHT LOSS EVERY WEEK.N/.V ABDOMINAL PAIN X 20 YRS.IN AND OUT OF HOSPITAL.APPEITITE CHANGES. - Genitourinary/Gynecological Other/Comment: endometriosis - Psychiatric Hx Psychophysiologic Disorder: Yes Hx Schizophrenia: Yes Hx Substance Use: Yes - Surgical History Hx Arthroscopy: Yes (LEFT) Other/Comment: MYOMECTOMY, SPLEENECTOMY - Anesthesia Hx Anesthesia: Yes Hx Anesthesia Reactions: No Hx Malignant Hyperthermia: No Family/Social History - Physician Review Nursing Documentation Reviewed: Yes Family/Social History: No Known Family HX Smoking Status: Never Smoked Hx Alcohol Use: No Hx Substance Use: Yes Substance used: marijuana Allergies/Home Meds Allergies/Adverse Reactions: Allergies No Known Allergies Allergy (Unverified 01/05/19 21:45) Home Medications: Home Meds Medication Instructions Recorded Confirmed No Known Home Med 09/21/17 09/21/17 Review of Systems - Physician Review All systems were reviewed & negative as marked: Yes - Review of Systems Constitutional: absent: Fevers, Night Sweats Cardiovascular: absent: Chest Pain Gastrointestinal: Abdominal Pain, Nausea, Vomiting Genitourinary Female: Normal. absent: Dysuria, Urine Output Changes, Vaginal Discharge Physical Exam Vital Signs Reviewed: Yes Vital Signs Temp Pulse Resp BP Pulse Ox 01/05/19 21:45 97.6 F 95 H 20 141/86 100 Temperature: Afebrile Blood Pressure: Normal Pulse: Tachycardic Respiratory Rate: Normal Appearance: Positive for: Well-Appearing, Non-Toxic, Comfortable Pain Distress: Mild Mental Status: Positive for: Alert and Oriented X 3 - Systems Exam Head: Present: Atraumatic, Normocephalic Pupils: Present: PERRL Extroacular Muscles: Present: EOMI Conjunctiva: Present: Normal Mouth: Present: Moist Mucous Membranes Neck: Present: Normal Range of Motion Respiratory/Chest: Present: Clear to Auscultation, Good Air Exchange. No: Respiratory Distress, Accessory Muscle Use Cardiovascular: Present: Regular Rate and Rhythm, Normal S1, S2. No: Murmurs Abdomen: Present: Tenderness (Mild diffuse tenderness). No: Distention, Peritoneal Signs, Rebound, Guarding Back: Present: Normal Inspection Upper Extremity: Present: Normal Inspection. No: Cyanosis, Edema Lower Extremity: Present: Normal Inspection. No: Edema Neurological: Present: GCS=15, CN II-XII Intact, Speech Normal Skin: Present: Warm, Dry, Normal Color. No: Rashes Psychiatric: Present: Alert, Oriented x 3, Normal Insight, Normal Concentration Medical Decision Making ED Course and Treatment: 01/05/19 22:31 Impression: 48 year old female presents with intractable nausea, vomiting, abdominal pain. Plan: -- CT ABD & Pelvis -- Moprhine -- Pepcid -- Toradol -- Zofran -- Urinalysis -- Reassess and disposition Prior Visits: Notes and results from previous visits were reviewed. Progress Notes: 01/06/19 02:29 CT SCAN OF THE ABDOMEN AND PELVIS WITH CONTRAST. CLINICAL HISTORY: Abdominal pain. TECHNIQUE: Multiple axial and coronal CT images were obtained through the abdomen and pelvis after administration of intravenous contrast material. COMMENTS: Bilateral basilar subsegmental atelectatic airspace disease of the lung bases. Mild pericardial effusion. Heavily calcified atheromatous plaques of the abdominal aorta with multifocal high grade chronic stenosis. Diffuse thickening of the proximal small bowels. Mild diffuse thickening of the fluid-filled stomach. The liver is of uniform attenuation without mass or defect. There is no intra or extrahepatic biliary ductal dilatation. The spleen is normal. The gallbladder is within normal limits. The pancreas is of normal contour and attenuation characteristics. There is no evidence of adrenal mass. Both kidneys demonstrate prompt and equal nephrograms. The kidneys are normal in size, shape and configuration. There is no evidence of renal or ureteral mass. No renal or ureteral calculi are identified. There is no hydroureter or hy dronephrosis. No evidence for appendicitis. No evidence for small or large bowel obstruction. There is no evidence of abdominal ascites or lymphadenopathy. There is no evidence of intrinsic or extrinsic bladder mass. There is no pelvic ascites or lymphadenopathy. Images of the lung bases show no evidence of pleural or parenchymal mass. There are no pleural effusions. The bony structures are free of lytic or blastic lesions. IMPRESSION: Uncomplicated enteritis. Uncomplicated gastritis. 01/06/19 04:00 Case discussed with medical editor and house physician. Patient will be admitted to [facility] for abdominal pain, leukocytosis, and intractable vomiting. - Lab Interpretations Lab Results: Total Bilirubin 0.5 mg/dL (0.2-1.3) 01/05/19 22:05 AST 53 U/L (14-36) H 01/05/19 22:05 ALT 55 U/L (7-56) 01/05/19 22:05 Alkaline Phosphatase 120 U/L (38-126) 01/05/19 22:05 Total Protein 9.2 g/dL (5.8-8.3) H 01/05/19 22:05 Albumin 5.1 g/dL (3.0-4.8) H 01/05/19 22:05 Globulin 4.1 gm/dL 01/05/19 22:05 Albumin/Globulin Ratio 1.2 (1.1-1.8) 01/05/19 22:05 Lipase 174 U/L (23-300) 01/05/19 22:05 - RAD Interpretation Radiology Orders: 01/05/19 22:23 ABD & PELVIS IV CONTRAST ONLY [CT] Stat - Medication Orders Current Medication Orders: Sodium Chloride (Sodium Chloride 0.9%) 1,000 mls @ 999 mls/hr IV .Q1H1M STA Stop: 01/05/19 22:53 Last Admin: 01/05/19 22:09 Dose: 999 mls/hr eMAR Start Stop Document 01/05/19 22:09 IT (Rec: 01/05/19 22:09 IT [id number]) Intravenous Solution Start Date 01/05/19 Start Time 22:09 Discontinued Medications Famotidine (Pepcid) 20 mg IVP STAT STA Stop: 01/05/19 21:57 Last Admin: 01/05/19 22:09 Dose: 20 mg IVP Administration Document 01/05/19 22:09 IT (Rec: 01/05/19 22:09 IT [id number]) Charges for Administration # of IVP Administrations 1 Ketorolac Tromethamine (Toradol) 30 mg IVP ONCE ONE Stop: 01/05/19 21:54 Last Admin: 01/05/19 22:09 Dose: 30 mg MAR Pain Assessment Document 01/05/19 22:09 IT (Rec: 01/05/19 22:09 IT [id number]) Pain Reassessment Is this a pain reassessment? No Sleep Is patient sleeping during reassessment? No Presence of Pain Presence of Pain Yes Pain Scale Used Protocol: PSCALES Pain Scale Used Numeric IVP Administration Document 01/05/19 22:09 IT (Rec: 01/05/19 22:09 IT [id number]) Charges for Administration # of IVP Administrations 1 Morphine Sulfate (Morphine) 4 mg IVP STAT STA Stop: 01/05/19 22:23 Ondansetron HCl (Zofran Inj) 4 mg IVP ONCE ONE Stop: 01/05/19 21:54 Last Admin: 01/05/19 22:09 Dose: 4 mg IVP Administration Document 01/05/19 22:09 IT (Rec: 01/05/19 22:09 IT [id number]) Charges for Administration # of IVP Administrations 1 - Scribe Statement The provider has reviewed the documentation as recorded by the [place] Provider Scribe Attestation: All medical record entries made by the Scribe were at my direction and personally dictated by me. I have reviewed the chart and agree that the record accurately reflects my personal performance of the history, physical exam, medical decision making, and the department course for this patient. I have also personally directed, reviewed, and agree with the discharge instructions and disposition. Disposition/Present on Arrival - Present on Arrival Any Indicators Present on Arrival: No History of DVT/PE: No History of Uncontrolled Diabetes: No Urinary Catheter: No History of Decub. Ulcer: No History Surgical Site Infection Following: None - Disposition Have Diagnosis and Disposition been Completed?: Yes Diagnosis: Abdominal pain, Leukocytosis, Intractable vomiting with nausea Disposition: HOSPITALIZED Disposition Time: 03:59 Patient Problems: Current Active Problems Problem Status Onset Abdominal pain Acute Intractable vomiting with nausea Acute Leukocytosis Acute Condition: STABLE
[2019-01-05] MEDS ORDERED: Iohexol 350 MG/100 ML VIAL ONE (22:41)
[2019-01-06 00:31] VITALS: RESP 18
[2019-01-06] MEDS ORDERED: cefTRIAXone 1 gm 1 GM/100 ML BAG IV STA (03:57)
[2019-01-06] MEDS ORDERED: metroNIDAZOLE IV 500 mg/100 ml 500 MG/100 ML BAG IV STA (03:57)
--- NOTE | 2019-01-06 04:06 | CP.PCM.HP ---
<Orestes Watters - Last Filed: 01/06/19 05:51> History of Present Illness - History of Present Illness History of Present Illness: PGY-1 Medicine H&P for Dr. Dominguez CC: Abdominal pain HPI: Patient is a 48 year old female with a past medical history of endometriosis with endometrial ablation, schizophrenia, depression, and arthritis, presenting with vomiting and abdominal pain for 1 day. Patient states that her abdominal pain started yesterday morning while she was at home. She describes the pain to be constant, 10/10 at its worst, and is located diffusely. She states that she took Pepcid without relief. Patient admits to be eating chicken and waffles for dinner the night before and did not eat breakfast. She also complains of nausea and vomited 4 times yesterday. She denies fevers, chills, headaches, shortness of breath, chest pain, diarrhea, constipation, or urinary symptoms. 12-point ROS reviewed and negative except mentioned in HPI. PMHx: endometriosis with endometrial ablation, schizophrenia, depression and arthritis. PSHx: endometial ablation, splenectomy s/p trauma, left inguinal hernia repair, left knee surgery s/p septic joint Allergies: NKDA Familiy Hx: Mother and father have DM-2 and HTN. Social Hx: Smokes marijuana daily. Denies tobacco, alcohol, or drug use. Meds: See MAR Allergies: NKDA PMD: Dr. Jacquelin Bocanegra [facility] [place] Present on Admission - Present on Admission Any Indicators Present on Admission: No History of DVT/PE: No History of Uncontrolled Diabetes: No Urinary Catheter: No Decubitus Ulcer Present: No Past Patient History - Infectious Disease Hx of Infectious Diseases: None - Past Medical History & Family History Past Medical History?: Yes - Past Social History Smoking Status: Never Smoked - CARDIAC Hx Cardiac Disorders: No - PULMONARY Hx Respiratory Disorders: Yes Other/Comment: SMOKES MARIJUANA - NEUROLOGICAL Hx Neurological Disorder: No - HEENT Hx HEENT Problems: No - RENAL Hx Chronic Kidney Disease: No - ENDOCRINE/METABOLIC Hx Endocrine Disorders: No - HEMATOLOGICAL/ONCOLOGICAL Hx Blood Disorders: No - INTEGUMENTARY Hx Dermatological Problems: Yes (TATTOOS,LEFT KNEE SCARRING FROM SX) - MUSCULOSKELETAL/RHEUMATOLOGICAL Hx Musculoskeletal Disorders: Yes Hx Arthritis: Yes Other/Comment: Knee surgery - "pseudogout" - GASTROINTESTINAL Hx Gastrointestinal Disorders: Yes Other/Comment: 5 LB WEIGHT LOSS EVERY WEEK.N/.V ABDOMINAL PAIN X 20 YRS.IN AND OUT OF HOSPITAL.APPEITITE CHANGES. - GENITOURINARY/GYNECOLOGICAL Other/Comment: endometriosis - PSYCHIATRIC Hx Psychophysiologic Disorder: Yes Hx Schizophrenia: Yes Hx Substance Use: Yes - SURGICAL HISTORY Hx Arthroscopy: Yes (LEFT) Other/Comment: MYOMECTOMY, SPLEENECTOMY - ANESTHESIA Hx Anesthesia: Yes Hx Anesthesia Reactions: No Hx Malignant Hyperthermia: No Meds Allergies/Adverse Reactions: Allergies Allergy/AdvReac Type Severity Reaction Status Date / Time No Known Allergies Allergy Unverified 01/05/19 21:45 Physical Exam - Constitutional Appears: Well, Non-toxic, No Acute Distress - Head Exam Head Exam: ATRAUMATIC, NORMAL INSPECTION - Eye Exam Eye Exam: EOMI, Normal appearance Pupil Exam: NORMAL ACCOMODATION - ENT Exam ENT Exam: Mucous Membranes Dry - Neck Exam Neck exam: Positive for: Normal Inspection - Respiratory Exam Respiratory Exam: Clear to Auscultation Bilateral, NORMAL BREATHING PATTERN. absent: Rales, Rhonchi, Wheezes, Respiratory Distress - Cardiovascular Exam Cardiovascular Exam: REGULAR RHYTHM, +S1, +S2. absent: Bradycardia, Tachycardia, Gallop, Rubs, Systolic Murmur - GI/Abdominal Exam GI & Abdominal Exam: Normal Bowel Sounds, Soft, Tenderness (Diffuse tenderness to palpation). absent: Distended, Firm, Guarding - Extremities Exam Extremities exam: Positive for: normal inspection. Negative for: calf tenderness, pedal edema - Back Exam Back exam: absent: CVA tenderness (L), CVA tenderness (R) - Neurological Exam Neurological exam: Alert, CN II-XII Intact, Oriented x3 - Psychiatric Exam Psychiatric exam: Normal Affect, Normal Mood - Skin Skin Exam: Dry, Intact, Normal Color, Warm Results - Vital Signs Recent Vital Signs: Last Vital Signs Temp 97.6 F 01/05/19 21:45 Pulse 94 H 01/06/19 00:30 Resp 18 01/06/19 00:30 BP 151/73 H 01/06/19 00:30 Pulse Ox 98 01/06/19 00:30 - Labs Result Diagrams: 01/05/19 22:05 01/05/19 22:05 Labs: Laboratory Results - last 24 hr 01/05/19 01/05/19 22:05 22:05 WBC 20.4 H RBC 4.55 Hgb 15.4 D Hct 43.2 MCV 94.9 MCH 33.8 MCHC 35.6 RDW 13.5 Plt Count 325 MPV 9.1 Sodium 143 Potassium 4.2 Chloride 108 H Carbon Dioxide 19 L Anion Gap 20 BUN 15 Creatinine 0.7 Est GFR ( Amer) > 60 Est GFR (Non-Af Amer) > 60 Random Glucose 142 H Calcium 10.6 H Total Bilirubin 0.5 AST 53 H ALT 55 Alkaline Phosphatase 120 Total Protein 9.2 H Albumin 5.1 H Globulin 4.1 Albumin/Globulin Ratio 1.2 Lipase 174 Assessment & Plan - Assessment and Plan (Free Text) Assessment: Patient is a 48 year old female with a past medical history of endometriosis with endometrial ablation, schizophrenia, depression and arthritis, presenting with vomiting and abdominal pain. Plan: Diffuse abdominal pain, 2/2 uncomplicated gastritis/enteritis - CT abd/pelvis: Uncomplicated gastritis/enteritis (prelim report) - Start Flagyl 500mg IV Q8 (started on 01/06) - Start Rocephin 1g IV QD (started on 01/06) - Morphine 1mg IV Q6 PRN - Toradol 15mg IV Q6 PRN - Tylenol PRN - Zofran PRN - Clear liquid diet - NS @ 100mL/hr Transaminitis - AST/ALT: 53/55 - Continue to monitor Hx of schizophrenia, depression - Patient is not taking any medications Prophylaxis: - DVT: Lovenox 40mg SC QD - GI: Protonix 40mg PO QD Case discussed with attending, Dr. Dominguez. Orestes Watters, PGY-1 <Guido Dominguez - Last Filed: 01/06/19 06:22> Results - Vital Signs Recent Vital Signs: Last Vital Signs Temp 97.6 F 01/05/19 21:45 Pulse 78 01/06/19 05:52 Resp 18 01/06/19 05:52 BP 117/67 01/06/19 05:30 Pulse Ox 98 01/06/19 05:30 - Labs Result Diagrams: 01/05/19 22:05 01/05/19 22:05 Labs: Laboratory Results - last 24 hr 01/05/19 01/05/19 22:05 22:05 WBC 20.4 H RBC 4.55 Hgb 15.4 D Hct 43.2 MCV 94.9 MCH 33.8 MCHC 35.6 RDW 13.5 Plt Count 325 MPV 9.1 Sodium 143 Potassium 4.2 Chloride 108 H Carbon Dioxide 19 L Anion Gap 20 BUN 15 Creatinine 0.7 Est GFR ( Amer) > 60 Est GFR (Non-Af Amer) > 60 Random Glucose 142 H Calcium 10.6 H Total Bilirubin 0.5 AST 53 H ALT 55 Alkaline Phosphatase 120 Total Protein 9.2 H Albumin 5.1 H Globulin 4.1 Albumin/Globulin Ratio 1.2 Lipase 174 Attending/Attestation - Attestation I have personally seen and examined this patient.: Yes I have fully participated in the care of the patient.: Yes I have reviewed all pertinent clinical information: Yes Notes (Text): 01/06/19 06:21 Patient was seen when she was in bed # 9 in the ER. Medical record was reviewed. Agree with history, physical examination, assessment and plan.
[2019-01-06] MEDS ORDERED: Benzocaine/Menthol (Cepacol) Lozenge MT PRN (04:47)
[2019-01-06] MEDS ORDERED: Morphine 2 mg/ml ISec IVP PRN (04:47)
[2019-01-06] MEDS ORDERED: Sodium Chloride 0.9% 1,000 ML IV SCH (05:00)
[2019-01-06 06:17] VITALS: PULSE 78
[2019-01-06 07:42] VITALS: BP 108/75; TEMP 97.9; O2SAT 99
[2019-01-06 08:20] LABS: HEMOGLOBIN 12.9 g/dL (12.0-16.0); MEAN CELL VOLUME 95.9 fl (80.0-105.0); MEAN CORPUSCULAR HEMOGLOBIN 33.2 pg (25.0-35.0); MEAN CORPUSCULAR HGB CONC 34.7 g/dl (31.0-37.0); MEAN PLATELET VOLUME 8.7 fl (7.0-11.0); RBC 3.88 10^6/uL (3.5-6.1); RED CELL DISTRIBUTION WIDTH 13.9 % (11.5-14.5); WHITE BLOOD COUNT 20.6 10^3/uL (4.5-11.0)
[2019-01-06 08:28] LABS: ALB/GLOB RATIO 1.4 (1.1-1.8); ALBUMIN 4.3 g/dL (3.0-4.8); ALT/SGPT 51 U/L (7-56); AST/SGOT 55 U/L (14-36); BLOOD UREA NITROGEN 18 mg/dL (7-21); CALCIUM 9.4 mg/dL (8.4-10.5); GFR NON-AFRICAN AMERICAN > 60
[2019-01-06 09:32] LABS: URINE APPEARANCE CLEAR (CLEAR); URINE BILIRUBIN NEGATIVE (NEGATIVE); URINE BLOOD TRACE-INTACT (NEGATIVE); URINE COLOR YELLOW (YELLOW); URINE GLUCOSE (UA) NEGATIVE (NEGATIVE); URINE LEUKOCYTE ESTERASE NEGATIVE Leu/uL (NEGATIVE); URINE PROTEIN 30 mg/dL (<30 mg/dL); URINE UROBILINOGEN 0.2 E.U./dL (<1 E.U./dL)
[2019-01-06 09:40] LABS: URINE AMORPHOUS SEDIMENT FEW /hpf; URINE BACTERIA MOD /hpf
[2019-01-06] MEDS ORDERED: Enoxaparin 40 mg Syringe SC SCH (10:00)
[2019-01-06 10:34] LABS: BARBITURATES, UR NEGATIVE (NEGATIVE); BENZODIAZEPINES, UR NEGATIVE (NEGATIVE); OPIATES, UR POSITIVE (NEGATIVE); PHENCYCLIDINE, UR NEGATIVE (NEGATIVE)
--- NOTE | 2019-01-06 11:05 | CT ---
Date of service: 01/06/2019 PROCEDURE: CT Abdomen and Pelvis with contrast HISTORY: abdominal pain COMPARISON: CT abdomen and pelvis with contrast performed 04/30/17 TECHNIQUE: Contrast dose: Omnipaque 350 IV Radiation dose: Total exam DLP = 237.67 mGy-cm. This CT exam was performed using one or more of the following dose reduction techniques: Automated exposure control, adjustment of the mA and/or kV according to patient size, and/or use of iterative reconstruction technique. FINDINGS: LOWER THORAX: Emphysematous changes. Bibasilar atelectasis. No visible pleural effusion or pneumothorax. Cardiomegaly. Small pericardial effusion. LIVER: Hypoattenuation of the liver compatible with hepatic steatosis. GALLBLADDER AND BILE DUCTS: Unremarkable. PANCREAS: Unremarkable. SPLEEN: Splenectomy with splenic remnant or splenule. ADRENALS: Unremarkable. KIDNEYS AND URETERS: The kidneys enhance symmetrically. No hydronephrosis or obstructing calculus identified. VASCULATURE: No aortic aneurysm. Atherosclerotic calcifications/mural plaque present with evidence of multifocal high-grade stenosis. BOWEL: Gastric wall thickening may be exaggerated by under distension; gastritis not excluded. Lack of oral contrast limits evaluation for bowel pathology. None of small bowel loops; correlate clinically for enteritis. Bowel loops appear within normal limits of caliber without evidence of obstruction. APPENDIX: The appendix appears within normal limits of caliber. No secondary signs of acute appendicitis. PERITONEUM: No significant free fluid. No definite free air. LYMPH NODES: No bulky adenopathy identified. BLADDER: Unremarkable. REPRODUCTIVE: Unremarkable. BONES: No acute osseous abnormality is detected. OTHER FINDINGS: None. IMPRESSION: Thick-walled small bowel; correlate for enteritis. Gastric wall thickening may be exaggerated by under distension; correlate clinically for gastritis. Splenectomy with splenic remnant or splenule. Hypoattenuation of the liver compatible with hepatic steatosis. Emphysematous changes. Bibasilar atelectasis. Small pericardial effusion. Cardiomegaly. Dense atherosclerotic calcifications of the aorta and branches with evidence of multifocal high-grade stenosis. Preliminary impression was provided by [employer].
[2019-01-06] MEDS ORDERED: metroNIDAZOLE IV 500 mg/100 ml 500 MG/100 ML BAG IVPB SCH (12:00)
[2019-01-06 13:26] LABS: HDL CHOLESTEROL 54 mg/dL (29-60)
[2019-01-06 13:37] LABS: LDL CHOLESTEROL 75 mg/dL (0-129)
--- NOTE | 2019-01-06 15:52 | CP.PCM.DIS ---
<Alfonso Patel - Last Filed: 01/06/19 15:41> Provider - Provider Date of Admission: 01/06/19 04:00 Attending physician: Jaclyn Loo MD Time Spent in preparation of Discharge (in minutes): 40 Diagnosis - Discharge Diagnosis (1) Viral gastroenteritis Status: Resolved (2) Intractable vomiting with nausea Status: Resolved (3) Atherosclerosis of abdominal aorta Status: Chronic Hospital Course - Lab Results Lab Results: Most Recent Lab Values WBC 20.6 10^3/uL (4.5-11.0) H 01/06/19 07:00 RBC 3.88 10^6/uL (3.5-6.1) 01/06/19 07:00 Hgb 12.9 g/dL (12.0-16.0) D 01/06/19 07:00 Hct 37.2 % (36.0-48.0) 01/06/19 07:00 MCV 95.9 fl (80.0-105.0) 01/06/19 07:00 MCH 33.2 pg (25.0-35.0) 01/06/19 07:00 MCHC 34.7 g/dl (31.0-37.0) 01/06/19 07:00 RDW 13.9 % (11.5-14.5) 01/06/19 07:00 Plt Count 270 10^3/uL (120.0-450.0) 01/06/19 07:00 MPV 8.7 fl (7.0-11.0) 01/06/19 07:00 Sodium 142 mmol/L (132-148) 01/06/19 07:00 Potassium 3.8 mmol/L (3.6-5.0) 01/06/19 07:00 Chloride 109 mmol/L (98-107) H 01/06/19 07:00 Carbon Dioxide 23 mmol/L (21-33) 01/06/19 07:00 Anion Gap 13 (10-20) 01/06/19 07:00 BUN 18 mg/dL (7-21) 01/06/19 07:00 Creatinine 0.8 mg/dl (0.7-1.2) 01/06/19 07:00 Est GFR ( Amer) > 60 01/06/19 07:00 Est GFR (Non-Af Amer) > 60 01/06/19 07:00 Random Glucose 100 mg/dL (70-110) 01/06/19 07:00 Calcium 9.4 mg/dL (8.4-10.5) 01/06/19 07:00 Total Bilirubin 0.5 mg/dL (0.2-1.3) 01/06/19 07:00 AST 55 U/L (14-36) H 01/06/19 07:00 ALT 51 U/L (7-56) 01/06/19 07:00 Alkaline Phosphatase 87 U/L (38-126) 01/06/19 07:00 Total Protein 7.5 g/dL (5.8-8.3) 01/06/19 07:00 Albumin 4.3 g/dL (3.0-4.8) 01/06/19 07:00 Globulin 3.2 gm/dL 01/06/19 07:00 Albumin/Globulin Ratio 1.4 (1.1-1.8) 01/06/19 07:00 Triglycerides 69 mg/dL (35-160) 01/06/19 07:00 Cholesterol 148 mg/dL (130-200) 01/06/19 07:00 LDL Cholesterol Direct 75 mg/dL (0-129) 01/06/19 07:00 HDL Cholesterol 54 mg/dL (29-60) 01/06/19 07:00 Lipase 174 U/L (23-300) 01/05/19 22:05 Urine Color Yellow (YELLOW) 01/06/19 09:20 Urine Appearance Clear (CLEAR) 01/06/19 09:20 Urine pH 6.0 (4.7-8.0) 01/06/19 09:20 Ur Specific [place] 1.020 (1.005-1.035) 01/06/19 09:20 Urine Protein 30 mg/dL (<30 mg/dL) H 01/06/19 09:20 Urine Glucose (UA) Negative mg/dL (NEGATIVE) 01/06/19 09:20 Urine Ketones 15 mg/dL (NEGATIVE) H 01/06/19 09:20 Urine Blood Trace-intact (NEGATIVE) H 01/06/19 09:20 Urine Nitrate Negative (NEGATIVE) 01/06/19 09:20 Urine Bilirubin Negative (NEGATIVE) 01/06/19 09:20 Urine Urobilinogen 0.2 E.U./dL (<1 E.U./dL) 01/06/19 09:20 Ur Leukocyte Esterase Negative Renetta/uL (NEGATIVE) 01/06/19 09:20 Urine RBC 2 - 5 /hpf (0-2) H 01/06/19 09:20 Urine WBC 1 - 3 /hpf (0-6) 01/06/19 09:20 Ur Epithelial Cells 4 - 5 /hpf (0-5) 01/06/19 09:20 Amorphous Sediment Few /hpf (NONE) 01/06/19 09:20 Urine Bacteria Mod /hpf (NONE) 01/06/19 09:20 Urine Other Fiber /hpf 01/06/19 09:20 Urine HCG, Qual Cancelled 01/06/19 09:20 Urine Opiates Screen Positive (NEGATIVE) H 01/06/19 09:30 Urine Methadone Screen Negative (NEGATIVE) 01/06/19 09:30 Ur Barbiturates Screen Negative (NEGATIVE) 01/06/19 09:30 Ur Phencyclidine Scrn Negative (NEGATIVE) 01/06/19 09:30 Ur Amphetamines Screen Negative (NEGATIVE) 01/06/19 09:30 U Benzodiazepines Scrn Negative (NEGATIVE) 01/06/19 09:30 U Oth Cocaine Metabols Negative (NEGATIVE) 01/06/19 09:30 U Cannabinoids Screen Positive (NEGATIVE) H 01/06/19 09:30 - Hospital Course Hospital Course: Patient is a 48 year old female with a past medical history of endometriosis with endometrial ablation, schizophrenia, depression, pseudogout, and rheumatoid arthritis presented to [facility] [place] with intractable vomiting and abdominal pain for 1 day. Patient states that over the past day she was started on weekly Methotrexate injection, however she states that her symptoms started prior to th e injection. Otherwise, no new medications were started. Patient denied any sick contacts, recent travel, or eating any bad food. CT of the abdomen and pelvis revealed findings consistent with gastroenteritis, hepatosteatosis, and diffuse atherosclerotic disease of the aorta. Atherosclerotic disease was consistent with CT findings in 2017. Patient was also found to have an elevated WBC likely reactive. Drug screen was positive for opioids and cannabinoids. Patient was admitted for intractable nausea and vomiting likely 2/2 gastroenteritis. Patient was given IVF for dehydration and antiemetics for nausea and vomiting. Patient's diet was progressively increased, which she tolerated well. Lipid panel was unremarkable. ASCVD 10 year risk was 1.5%. As patient was tolerating her diet and her symptoms had resolved, she was discharged. Patient was advised to follow up with Dr. Bocanegra outpatient for routine monitoring and vascular surgery referral. CT results were discussed with patient and the need for daily aspirin. Patient was counselled to increase her diet as tolerated and stick to low fat, low salt diet. Patient was also advised to cease all smoking. Discharge Exam - Head Exam Head Exam: ATRAUMATIC, NORMAL INSPECTION - Eye Exam Eye Exam: Normal appearance Pupil Exam: NORMAL ACCOMODATION - ENT Exam ENT Exam: Normal Exam - Neck Exam Neck exam: Normal Inspection - Respiratory Exam Respiratory Exam: Clear to PA & Lateral. absent: Rales, Rhonchi, Wheezes - Cardiovascular Exam Cardiovascular Exam: RRR, +S1, +S2. absent: Diastolic murmur, Rubs, Systolic Murmur - GI/Abdominal Exam GI & Abdominal Exam: Soft. 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 Bocanegra within 3-5 days - Diffuse atherosclerotic disease found on abdominal CT, would recommend vascular referral; please discuss with Dr. Bocanegra - Monitor liver enzymes per primary doctor - Cease all smoking - Take new medications as prescribed - Recommend low fat, low salt diet - Increase diet as tolerated - Proceed to ED if symptoms return Referrals: Jacquelin Bocanegra MD [Family Provider] - <Jaclyn Loo - Last Filed: 01/06/19 16:18> Provider - Provider Date of Admission: 01/06/19 04:00 Attending physician: Jaclyn Loo MD Hospital Course - Lab Results Lab Results: Most Recent Lab Values WBC 20.6 10^3/uL (4.5-11.0) H 01/06/19 07:00 RBC 3.88 10^6/uL (3.5-6.1) 01/06/19 07:00 Hgb 12.9 g/dL (12.0-16.0) D 01/06/19 07:00 Hct 37.2 % (36.0-48.0) 01/06/19 07:00 MCV 95.9 fl (80.0-105.0) 01/06/19 07:00 MCH 33.2 pg (25.0-35.0) 01/06/19 07:00 MCHC 34.7 g/dl (31.0-37.0) 01/06/19 07:00 RDW 13.9 % (11.5-14.5) 01/06/19 07:00 Plt Count 270 10^3/uL (120.0-450.0) 01/06/19 07:00 MPV 8.7 fl (7.0-11.0) 01/06/19 07:00 Sodium 142 mmol/L (132-148) 01/06/19 07:00 Potassium 3.8 mmol/L (3.6-5.0) 01/06/19 07:00 Chloride 109 mmol/L (98-107) H 01/06/19 07:00 Carbon Dioxide 23 mmol/L (21-33) 01/06/19 07:00 Anion Gap 13 (10-20) 01/06/19 07:00 BUN 18 mg/dL (7-21) 01/06/19 07:00 Creatinine 0.8 mg/dl (0.7-1.2) 01/06/19 07:00 Est GFR ( Amer) > 60 01/06/19 07:00 Est GFR (Non-Af Amer) > 60 01/06/19 07:00 Random Glucose 100 mg/dL (70-110) 01/06/19 07:00 Calcium 9.4 mg/dL (8.4-10.5) 01/06/19 07:00 Total Bilirubin 0.5 mg/dL (0.2-1.3) 01/06/19 07:00 AST 55 U/L (14-36) H 01/06/19 07:00 ALT 51 U/L (7-56) 01/06/19 07:00 Alkaline Phosphatase 87 U/L (38-126) 01/06/19 07:00 Total Protein 7.5 g/dL (5.8-8.3) 01/06/19 07:00 Albumin 4.3 g/dL (3.0-4.8) 01/06/19 07:00 Globulin 3.2 gm/dL 01/06/19 07:00 Albumin/Globulin Ratio 1.4 (1.1-1.8) 01/06/19 07:00 Triglycerides 69 mg/dL (35-160) 01/06/19 07:00 Cholesterol 148 mg/dL (130-200) 01/06/19 07:00 LDL Cholesterol Direct 75 mg/dL (0-129) 01/06/19 07:00 HDL Cholesterol 54 mg/dL (29-60) 01/06/19 07:00 Lipase 174 U/L (23-300) 01/05/19 22:05 Urine Color Yellow (YELLOW) 01/06/19 09:20 Urine Appearance Clear (CLEAR) 01/06/19 09:20 Urine pH 6.0 (4.7-8.0) 01/06/19 09:20 Ur Specific [place] 1.020 (1.005-1.035) 01/06/19 09:20 Urine Protein 30 mg/dL (<30 mg/dL) H 01/06/19 09:20 Urine Glucose (UA) Negative mg/dL (NEGATIVE) 01/06/19 09:20 Urine Ketones 15 mg/dL (NEGATIVE) H 01/06/19 09:20 Urine Blood Trace-intact (NEGATIVE) H 01/06/19 09:20 Urine Nitrate Negative (NEGATIVE) 01/06/19 09:20 Urine Bilirubin Negative (NEGATIVE) 01/06/19 09:20 Urine Urobilinogen 0.2 E.U./dL (<1 E.U./dL) 01/06/19 09:20 Ur Leukocyte Esterase Negative Renetta/uL (NEGATIVE) 01/06/19 09:20 Urine RBC 2 - 5 /hpf (0-2) H 01/06/19 09:20 Urine WBC 1 - 3 /hpf (0-6) 01/06/19 09:20 Ur Epithelial Cells 4 - 5 /hpf (0-5) 01/06/19 09:20 Amorphous Sediment Few /hpf (NONE) 01/06/19 09:20 Urine Bacteria Mod /hpf (NONE) 01/06/19 09:20 Urine Other Fiber /hpf 01/06/19 09:20 Urine HCG, Qual Cancelled 01/06/19 09:20 Urine Opiates Screen Positive (NEGATIVE) H 01/06/19 09:30 Urine Methadone Screen Negative (NEGATIVE) 01/06/19 09:30 Ur Barbiturates Screen Negative (NEGATIVE) 01/06/19 09:30 Ur Phencyclidine Scrn Negative (NEGATIVE) 01/06/19 09:30 Ur Amphetamines Screen Negative (NEGATIVE) 01/06/19 09:30 U Benzodiazepines Scrn Negative (NEGATIVE) 01/06/19 09:30 U Oth Cocaine Metabols Negative (NEGATIVE) 01/06/19 09:30 U Cannabinoids Screen Positive (NEGATIVE) H 01/06/19 09:30 Attending/Attestation - Attestation I have personally seen and examined this patient.: Yes I have fully participated in the care of the patient.: Yes I have reviewed all pertinent clinical information, including history, physical exam and plan: Yes Notes (Text): 01/06/19 16:10 48 year old female with past medical history of endometriosis, depression and rheumatoid arthritis who presented overnight with complaint of abdominal pain, nausea and vomiting. CT scan showed enteritis. She was admitted for possible gastroenteritis. She had leukocytosis, likely reactive. Her symptoms improved and her diet was advanced which she tolerated. CT findings of diffuse atherosclerotic disease was discussed with patient. Similar finding was seen on prior CT scan. Counselled on diet modifications, monitoring LFTs, aspirin and cessation of substance abuse. Recommended outpatient vascular evaluation. Patient is discharged home to follow up with pmd. Jaclyn Loo MD Hospitalist.
[2019-01-07] MEDS ORDERED: Pantoprazole 40 mg EC Tab PO SCH (10:00)
[2019-01-07] MEDS ORDERED: cefTRIAXone 1 gm 1 GM/100 ML BAG IVPB SCH (10:00)
== END 2019-01-06 16:05 | disposition home or self-care (01) ==
LOC: ED 21:37 → ERH 01-06 04:00 → 5RNO 01-06 05:42
PROVIDERS: ADMIT Hospitalist; ATTEND Internal Medicine
DX: A08.4 Viral intestinal infection, unspecified (principal); E86.0 Dehydration; I70.0 Atherosclerosis of aorta; M06.9 Rheumatoid arthritis, unspecified; Z90.81 Acquired absence of spleen; F20.9 Schizophrenia, unspecified; F12.90 Cannabis use, unspecified, uncomplicated; K76.0 Fatty (change of) liver, not elsewhere classified; M11.20 Other chondrocalcinosis, unspecified site
CPT/HCPCS: 36415; 74177; 80053; 80061; 80324; 80345; 80346; 80349; 80353; 80358; 80361; 81001; 83690; 83992; 85027; 87040; 87086; 96372; 96374; 96375; 96376; 99284; G0378; J0696; J1650; J1885; J2270; J2405; J7030; Q9967